=== PATIENT | female | born 1960 | race American Indian/Alaskan Native ===

== ENCOUNTER 2018-02-20 02:45 | Inpatient (IN) | payer MEDICAID ==
--- NOTE | 2018-02-20 03:30 | C.PDOC ---
History Of Present Illness 57 year old female presents to the ED for psychiatric evaluation. Patient reports suicidal ideation since last night. Patient has history of suicidal ideation one year ago. She reports she has been drinking alcohol and using heroin for the past few days. She denies homicidal ideation. Chief Complaint (Nursing): Psychiatric Evaluation History Per: Patient History/Exam Limitations: no limitations Onset/Duration Of Symptoms: Hrs Current Symptoms Are (Timing): Still Present Suicide/Self Injury Attempted (Context): None Modifying Factor(s): Alcohol, Narcotics (heroin ) Associated Symptoms: Suicidal Thoughts Involuntary Hold By: None Recent travel outside of the [place]: No Additional History Per: Patient Past Medical History Reviewed: Historical Data, Nursing Documentation, Vital Signs Vital Signs: Last Vital Signs Temp 98.4 F 02/20/18 06:30 Pulse 60 02/20/18 06:30 Resp 16 02/20/18 06:30 BP 96/67 L 02/20/18 06:30 Pulse Ox 99 02/20/18 06:37 - Medical History PMH: Asthma, Back Problems (Herniated Disc, Sciatica), Bipolar Disorder, HTN, Hypercholesterolemia, Schizophrenia, Chronic Pain (Back) Denies: Diabetes, Hepatitis, HIV, Seizures, Sexually Transmitted Disease Surgical History: No Surg Hx - [facility] Procedures CLOSED ENDOSCOPIC BIOPSY OF LARGE INTESTINE (08/12/13) ESOPHAGOGASTRODUODENOSCOPY [EGD] W/CLOSED BIOPSY (08/12/13) EXCISION OF STOMACH, ENDO, DIAGN (12/29/15) Family History: States: Unknown Family Hx - Social History Hx Tobacco Use: Yes Hx Alcohol Use: Yes Hx Substance Use: Yes - Immunization History Hx Tetanus Toxoid Vaccination: Yes Hx Influenza Vaccination: No Hx Pneumococcal Vaccination: No Review Of Systems Psych: Positive for: Suicidal ideation Physical Exam - Physical Exam Appears: Non-toxic, No Acute Distress Skin: Normal Color, Warm, Dry Head: Atraumatic, Normacephalic Eye(s): bilateral: Normal Inspection Oral Mucosa: Moist, Other (alcohol on breath ) Neck: Supple Chest: Symmetrical, No Deformity, No Tenderness Cardiovascular: Rhythm Regular, No Murmur Respiratory: Normal Breath Sounds, No Rales, No Rhonchi, No Wheezing Extremity: Normal ROM, Capillary Refill (less than 2 seconds ) Neurological/Psych: Oriented x3, Normal Speech, Normal Cognition ED Course And Treatment - Laboratory Results Result Diagrams: 02/20/18 03:51 02/20/18 03:36 O2 Sat by Pulse Oximetry: 99 (on RA) Pulse Ox Interpretation: Normal Progress Note: Bloodwork and UA ordered and reviewed. Disposition Discussed With : Dinah Barnes Doctor Will See Patient In The: Hospital Counseled Patient/Family Regarding: Diagnosis - Disposition Disposition: HOSPITALIZED Disposition Time: 06:37 Condition: STABLE Forms: [facility] ([place]) - POA Present On Arrival: None - Clinical Impression Clinical Impression: Schizophrenia, unspecified - Scribe Statement The provider has reviewed the documentation as recorded by the Scribe (Perla Mcdonnell) Provider Attestation: All medical record entries made by the Scribe were at my direction and personally dictated by me. I have reviewed the chart and agree that the record accurately reflects my personal performance of the history, physical exam, medical decision making, and the department course for this patient. I have also personally directed, reviewed, and agree with the discharge instructions and disposition.
[2018-02-20 03:46] LABS: HCG,QUALITATIVE URINE NEGATIVE (NEGATIVE)
[2018-02-20 03:49] LABS: SQUAMOUS EPITHIAL 2 /hpf (0-5); URINE BILIRUBIN NEGATIVE (NEGATIVE); URINE BLOOD NEGATIVE (NEGATIVE); URINE CLARITY Clear (Clear); URINE COLOR Yellow (YELLOW); URINE GLUCOSE (UA) NORMAL (Normal); URINE LEUKOCYTE ESTERASE NEG Leu/uL (Negative); URINE PROTEIN NEGATIVE (NEGATIVE); URINE UROBILINOGEN NORMAL mg/dL (0.2-1.0)
[2018-02-20 03:51] LABS: ALBUMIN 3.6 g/dL (3.5-5.0); ALT/SGPT 28 U/L (9-52); AST/SGOT 29 U/L (14-36); BLOOD UREA NITROGEN 16 mg/dL (7-17); CALCIUM 8.8 mg/dl (8.6-10.4); GFR AFRICAN-AMERICAN 56; GFR NON-AFRICAN AMERICAN 46
[2018-02-20 03:54] LABS: BASO # 0.1 K/uL (0.0-0.2); BASO % 1.4 % (0.0-2.0); EOS # 0.2 K/uL (0.0-0.7); EOS % 1.5 % (0.0-4.0); HEMOGLOBIN 11.6 g/dL (11.0-16.0); LYMPH # 3.2 K/uL (1.0-4.3); LYMPH % 30.2 % (20.0-40.0); MEAN CELL VOLUME 84.7 fL (81.0-99.0); MEAN CORPUSCULAR HEMOGLOBIN 27.8 pg (27.0-31.0); MEAN CORPUSCULAR HGB CONC 32.8 g/dL (33.0-37.0); MEAN PLATELET VOLUME 9.4 fL (7.2-11.7); MONO # 0.7 K/uL (0.0-0.8); MONO % 6.4 % (0.0-10.0); NEUT # 6.5 K/uL (1.8-7.0); NEUT % 60.5 % (50.0-75.0); NRBC % 0.1 % (0.0-2.0); RBC 4.16 Mil/uL (3.80-5.20); RED CELL DISTRIBUTION WIDTH 15.9 % (11.5-14.5); WHITE BLOOD COUNT 10.7 K/uL (4.8-10.8)
[2018-02-20 04:03] LABS: BARBITURATES, UR POSITIVE (NEGATIVE); BENZODIAZEPINES, UR NEGATIVE (NEGATIVE); OPIATES, UR POSITIVE (NEGATIVE); PHENCYCLIDINE, UR NEGATIVE (NEGATIVE)
[2018-02-20] MEDS ORDERED: Alum-Mag Hydrox-Simethicone Susp (30 mL) PO STA (06:31)
[2018-02-20] MEDS ORDERED: Alum-Mag Hydrox-Simethicone Susp (30 mL) ONE (06:40)
[2018-02-20] MEDS ORDERED: Pneumococcal 23-Valent Vaccine SC ONE (08:25)
--- NOTE | 2018-02-20 08:55 | PCM.BM ---
Treatment Plan Problems - Problems identified on initial assessmt Substance Abuse Date Initiated: 02/20/18 Time Initiated: 09:00 Assessment reference: NA Status: Active - Milieu Protocol Maintain good personal hygiene: daily Encourage regular showers, daily Remind patient to perform daily oral care, daily Assist patient to perform ADL's Maintain personal safety: daily Educate patient to report safety concerns to staff, daily Monitor environment for contraband/sharps Medication safety: Monitor for expected outcome, potential side effects: daily, Assess barriers to learning: daily, Assess readiness for medication education: daily
--- NOTE | 2018-02-20 10:23 | PCM.PSYCH ---
Initial Psychiatric Evaluation - Initial Psychiatric Evaluation Type of Admission: Voluntary Legal Status: Capacity Chief Complaint (in patient's own words): I was feeling depressed and suicidal.' History of Present Illness and Precipitating Events: Patient is a 57yo AAF came to the ED with complain of depressed mood and suicidal ideation with plan 'to walk in front of cars'. As per the patient she lost her job almost 6 months ago. 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 Pt has also had on-going conflicts with her live-in boyfriend, stating: "We have a lot of challenges about work, money, and where we live". As per the patient she become increasingly depressed since then. Since past 2 days she has been increasingly suicidal. Pt attempted to walk in front of on-coming traffic; However, the cars reportedly "stopped too fast". Pt has a hx of two prior suicide attempts by od on pills. Patient reported depressed mood, feelings of hopelessness and helplessness or sleep and poor appetite. She also reports of hearing voices, telling her, "I was a bad person" and "My life is no good"; Pt also has a prior hx of experiencing command "voices " instructing her to "hurt" herself. Pt states she had been linked with outpt services at [facility]; Last contact with same was in January 2018; Pt has been medication non-compliant for the past "few days". She also reports abusing heroin 5-10 bags, along with cocaine. Last abuse was day before yesterday. Patient reports of withdrawal symptoms including nausea, vomiting, diarrhea, abdominal cramps and joint pains. Past medical history: COPD, HTN Current Medications: Active Medications Generic Name Dose Route Start Last Admin Trade Name Freq PRN Reason Stop Dose Admin Clonidine HCl 0.1 mg 02/20/18 07:08 Catapres PO Q8 PRN COWS Score More or Equal to 5 Hydroxyzine HCl 25 mg 02/20/18 07:09 Atarax PO Q6H PRN Anxiety Ibuprofen 600 mg 02/20/18 07:09 Motrin Tab PO TID PRN Pain, moderate (4-7) Loperamide HCl 2 mg 02/20/18 07:08 Imodium PO Q8 PRN Diarrhea Ondansetron HCl 4 mg 02/20/18 07:08 Zofran Tab PO Q8 PRN Nausea/Vomiting Past Psychiatric History - Past Psychiatric History Previous Treatment History: Inpatient Pertinent Medical Hx (Current Medical&Sleep Prob, Allergies): Allergies Allergy/AdvReac Type Severity Reaction Status Date / Time No Known Allergies Allergy Verified 04/30/15 17:16 Alprazolam [Xanax] 2 mg PO BID 04/30/15 Oxycodone Hydrochloride [Oxycodone] 30 mg PO TID 04/30/15 Atorvastatin [Lipitor] 20 mg PO DAILY 12/29/15 Hydrochlorothiazide [HCTZ] 25 mg PO DAILY 12/29/15 cloNIDine [Catapres] 0.3 mg PO TID 12/29/15 Albuterol HFA [Ventolin HFA 90 mcg/actuation (8 g)] 2 puff IH [id number] PRN #1 inhaler 08/28/16 Azithromycin [Zithromax Tri-Moiz] 500 mg PO DAILY #3 tablet 08/28/16 Prednisone [Deltasone] 3 tab PO DAILY #12 tablet 08/28/16 Review of Systems - Review of Systems All systems: reviewed and no additional remarkable complaints except - Psychiatric Psychiatric: Anxiety, Auditory Hallucinations, Depression, Suicidal Ideation Mental Status Examination - Personal Presentation Personal Presentation: Looks stated age - Affect Affect: Constricted, Depressed - Motor Activity Motor Activity: Calm - Reliability in Providing Information Reliability in Providing Information: Poor, due to alteration in thoughts - Speech Speech: Disorganized - Mood Mood: Depressed, Anxious - Formal Thought Process Formal Thought Process: Hallucinations, Delusions - Hallucinations/Delusions Hallucinations: Auditory Delusions: Persecution - Obsessions/Compulsions Obsessions: No Compulsions: No - Cognitive Functions Orientation: Person, Place, Situation, Time Sensorium: Alert Attention/Concentration: Attentive Abstract Thinking: [place] Estimate of Intelligence: Below average Judgement: Imparied, as evidence by: Poor judgement, Imparied, as evidence by: Lack of insight into illness - Risk Risk: Suicidal, Withdrawal, Diminished functioning - Strength & Assets Inventory Strength & Assets Inventory: Family support DSM 5 DX - DSM 5 DSM 5 Diagnosis: Schizoaffective disorder depressed type Opioid use disorder severe Opioid withdrawal Cocaine use disorder severe - Recommended/Plan of Treatment Treatment Recommendations and Plan of Treatment: Schizoaffective disorder depressed type CBT Psychoeducation Supportive therapy, group therapy, individual therapy Paxil 10 mg by mouth twice a day Seroquel 100 mg PO QHS Opioid use disorder severe CBT Psychoeducation Supportive therapy, individual therapy Use [place] for abstinence Opioid withdrawal CBT Psychoeducation Supportive therapy, individual therapy Clonidine when necessary Methadone taper Cocaine use disorder severe CBT Psychoeducation Supportive therapy, individual therapy Use [place] for abstinence COPD Continue prescribed medications HTN Continue prescribed medications
[2018-02-20] MEDS ORDERED: Albuterol HFA 90 mcg/actuation (8 g) IH PRN (14:00)
[2018-02-20] MEDS ORDERED: Albuterol-Ipratrop 3 mg / 0.5 (3 ml) UD INH PRN (14:09)
--- NOTE | 2018-02-20 14:12 | CP.PCM.CON ---
History of Present Illness - History of Present Illness History of Present Illness: PGY 2 medicine consult note for Dr. Pandey: Patient was seen and examined today. 57 year old female with a past medical history of hypertension, hyperlipidemina and COPD. Patient states she is a patient of Dr. Pandey and consult was placed for COPD management. Patients states she has been taking a steroid pack outpatient fot the last week for COPD exacerbation. At the moment she feels slightly short of breath and is coughing. She denies chest pain or other symptoms. She reports taking Ventolin, Spirivia and Advair at home for COPD. Of note she is also on Clonidine three times daily for BP control. Review of Systems - Constitutional Constitutional: absent: Chills, Fever - EENT Eyes: absent: Blurred Vision, Change in Vision - Cardiovascular Cardiovascular: absent: Chest Pain, Chest Pain at Rest - Respiratory Respiratory: Cough, Dyspnea on Exertion. absent: Dyspnea, Wheezing, Chest Congestion - Gastrointestinal Gastrointestinal: absent: Abdominal Pain Past Patient History - Past Medical History & Family History Past Medical History?: Yes - Past Social History Smoking Status: Heavy Smoker > 10 Cigarettes Daily - CARDIAC Hx Cardiac Disorders: No Hx Hypertension: Yes - PULMONARY Hx Chronic Obstructive Pulmonary Disease (COPD): Yes Hx Tuberculosis: No - NEUROLOGICAL HX Cerebrovascular Accident: No Hx Seizures: No - RENAL Hx Chronic Kidney Disease: No - ENDOCRINE/METABOLIC Hx Endocrine Disorders: No - HEMATOLOGICAL/ONCOLOGICAL Hx Cancer: No Hx Human Immunodeficiency Virus (HIV): No - INTEGUMENTARY Hx Dermatological Problems: No - MUSCULOSKELETAL/RHEUMATOLOGICAL Hx Back Pain: Yes (chronic back pain) Hx Falls: Yes (fell last week) Hx Herniated Disk: Yes (lower back) Hx Unsteady Gait: Yes - GASTROINTESTINAL Hx Gastrointestinal Disorders: No - GENITOURINARY/GYNECOLOGICAL Hx Sexually Transmitted Disorders: No - PSYCHIATRIC Hx Depression: Yes - SURGICAL HISTORY Hx Breast Biopsy: Yes (left breast, benign) Other/Comment: Closed Endoscopic Biopsy of large intestine. - ANESTHESIA Hx Anesthesia: Yes Hx Anesthesia Reactions: No Hx Malignant Hyperthermia: No Meds Allergies/Adverse Reactions: Allergies Allergy/AdvReac Type Severity Reaction Status Date / Time No Known Allergies Allergy Verified 04/30/15 17:16 - Medications Medications: Current Medications Albuterol (Ventolin Hfa 90 Mcg/Actuation (8 G)) 2 puff IH RQ6 PRN PRN Reason: Cough Chlordiazepoxide (Librium) 25 mg PO Q6 PRN PRN Reason: Symptoms of alcohol withdrawl Clonidine HCl (Catapres) 0.1 mg PO Q8 PRN PRN Reason: COWS Score More or Equal to 5 Clonidine HCl (Catapres) 0.3 mg PO TID [facility] Hydrochlorothiazide (Hydrodiuril) 25 mg PO DAILY [facility] Hydroxyzine HCl (Atarax) 25 mg PO Q6H PRN PRN Reason: Anxiety Ibuprofen (Motrin Tab) 600 mg PO TID PRN PRN Reason: Pain, moderate (4-7) Loperamide HCl (Imodium) 2 mg PO Q8 PRN PRN Reason: Diarrhea Methadone HCl (Methadone) 15 mg PO DAILY [facility] PRN Reason: Taper Stop: 02/24/18 09:59 Ondansetron HCl (Zofran Tab) 4 mg PO Q8 PRN PRN Reason: Nausea/Vomiting Paroxetine HCl (Paxil) 20 mg PO DAILY [facility] Last Admin: 02/20/18 12:11 Dose: 20 mg Quetiapine Fumarate (Seroquel) 100 mg PO HS [facility] Rosuvastatin Calcium (Crestor) 10 mg PO HS [facility] Physical Exam - Constitutional Appears: Non-toxic, No Acute Distress - Head Exam Head Exam: ATRAUMATIC, NORMAL INSPECTION - Eye Exam Eye Exam: EOMI Pupil Exam: NORMAL ACCOMODATION - ENT Exam ENT Exam: Mucous Membranes Moist - Respiratory Exam Respiratory Exam: Decreased Breath Sounds, Wheezes, NORMAL BREATHING PATTERN. absent: Accessory Muscle Use, Respiratory Distress - Cardiovascular Exam Cardiovascular Exam: REGULAR RHYTHM, +S1, +S2 - GI/Abdominal Exam GI & Abdominal Exam: Normal Bowel Sounds, Soft. absent: Tenderness - Extremities Exam Extremities exam: Positive for: normal inspection Results - Vital Signs Recent Vital Signs: Last Vital Signs Temp 98.2 F 02/20/18 07:35 Pulse 54 L 02/20/18 07:35 Resp 19 02/20/18 07:35 BP 124/74 02/20/18 07:35 Pulse Ox 99 02/20/18 06:40 - Labs Result Diagrams: 02/20/18 03:51 02/20/18 03:36 Labs: Laboratory Results - last 24 hr 02/20/18 02/20/18 02/20/18 03:36 03:44 03:44 WBC RBC Hgb Hct MCV MCH MCHC RDW Plt Count MPV Neut % (Auto) Lymph % (Auto) [place] % (Auto) Eos % (Auto) Baso % (Auto) Neut # (Auto) Lymph # (Auto) [place] # (Auto) Eos # (Auto) Baso # (Auto) Sodium 138 Potassium 3.9 Chloride 103 Carbon Dioxide 26 Anion Gap 13 BUN 16 Creatinine 1.2 Est GFR ( Amer) 56 Est GFR (Non-Af Amer) 46 Random Glucose 103 Calcium 8.8 Total Bilirubin 0.7 AST 29 ALT 28 Alkaline Phosphatase 67 Total Protein 7.2 Albumin 3.6 Globulin 3.7 Albumin/Globulin Ratio 1.0 Urine Color Yellow Urine Clarity Clear Urine pH 7.0 Ur Specific [place] 1.010 Urine Protein Negative Urine Glucose (UA) Normal Urine Ketones Negative Urine Blood Negative Urine Nitrate Negative Urine Bilirubin Negative Urine Urobilinogen Normal Ur Leukocyte Esterase Neg Urine WBC (Auto) 1 Urine RBC (Auto) < 1 Ur Squamous Epith Cells 2 Urine HCG, Qual Negative Urine Opiates Screen Positive H Urine Methadone Screen Negative Ur Barbiturates Screen Positive H Ur Phencyclidine Scrn Negative Ur Amphetamines Screen Negative U Benzodiazepines Scrn Negative U Oth Cocaine Metabols Positive H U Cannabinoids Screen Negative Alcohol, Quantitative < 10 02/20/18 03:51 WBC 10.7 RBC 4.16 Hgb 11.6 Hct 35.2 MCV 84.7 MCH 27.8 MCHC 32.8 L RDW 15.9 H Plt Count 408 H D MPV 9.4 Neut % (Auto) 60.5 Lymph % (Auto) 30.2 [place] % (Auto) 6.4 Eos % (Auto) 1.5 Baso % (Auto) 1.4 Neut # (Auto) 6.5 Lymph # (Auto) 3.2 [place] # (Auto) 0.7 Eos # (Auto) 0.2 Baso # (Auto) 0.1 Sodium Potassium Chloride Carbon Dioxide Anion Gap BUN Creatinine Est GFR ( Amer) Est GFR (Non-Af Amer) Random Glucose Calcium Total Bilirubin AST ALT Alkaline Phosphatase Total Protein Albumin Globulin Albumin/Globulin Ratio Urine Color Urine Clarity Urine pH Ur Specific [place] Urine Protein Urine Glucose (UA) Urine Ketones Urine Blood Urine Nitrate Urine Bilirubin Urine Urobilinogen Ur Leukocyte Esterase Urine WBC (Auto) Urine RBC (Auto) Ur Squamous Epith Cells Urine HCG, Qual Urine Opiates Screen Urine Methadone Screen Ur Barbiturates Screen Ur Phencyclidine Scrn Ur Amphetamines Screen U Benzodiazepines Scrn U Oth Cocaine Metabols U Cannabinoids Screen Alcohol, Quantitative Assessment & Plan - Assessment and Plan (Free Text) Assessment: COPD exacerbation Duonebs RQ4 prn SOB Advair 250/50 RQ12 Spiriva 18 mcg INH HS daily f/u chest X ray afrebrile, no white count Hypertension Clonidine 0.3 mg PO TID HCTZ 25mg PO daily Hyperlipidemia Crestor 10mg PO HS All management per Dr. Dannie Nobles DO PGY2
[2018-02-20] MEDS: Simethicone 80 mg Chewtab PO PRN (18:00)
[2018-02-20] MEDS: Fluticasone-Salmeterol 250-50mcg Diskus INH SCH (20:31)
--- NOTE | 2018-02-21 10:58 | CP.PCM.PN ---
Subjective - Date & Time of Evaluation Date of Evaluation: 02/21/18 Time of Evaluation: 09:00 - Subjective Subjective: PGY 2 medicine progress note for Dr. Pandey: Patient was seen and examined today. Patient stating her breathing was a lot better than yesterday. No other complaints today. Medicine will sign off. Continue current medications. Objective - Vital Signs/Intake and Output Vital Signs (last 24 hours): Temp Pulse Resp BP Pulse Ox 97.6 F 51 L 19 152/91 H 99 02/21/18 06:31 02/21/18 06:31 02/21/18 06:31 02/21/18 06:31 02/20/18 06:40 - Medications Medications: Current Medications Albuterol/Ipratropium (Duoneb 3 Mg/0.5 Mg (3 Ml) Ud) 3 ml INH RQ4 PRN PRN Reason: Shortness of Breath Clonidine HCl (Catapres) 0.1 mg PO Q8 PRN PRN Reason: COWS Score More or Equal to 5 Hydrochlorothiazide (Hydrodiuril) 25 mg PO DAILY [facility] Last Admin: 02/21/18 09:10 Dose: 25 mg Hydroxyzine HCl (Atarax) 25 mg PO Q6H PRN PRN Reason: Anxiety Last Admin: 02/21/18 02:05 Dose: 25 mg Ibuprofen (Motrin Tab) 600 mg PO TID PRN PRN Reason: Pain, moderate (4-7) Loperamide HCl (Imodium) 2 mg PO Q8 PRN PRN Reason: Diarrhea Methadone HCl (Methadone) 15 mg PO DAILY [facility] PRN Reason: Taper Stop: 02/24/18 09:59 Last Admin: 02/21/18 09:09 Dose: 15 mg Ondansetron HCl (Zofran Tab) 4 mg PO Q8 PRN PRN Reason: Nausea/Vomiting Paroxetine HCl (Paxil) 20 mg PO DAILY [facility] Last Admin: 02/21/18 09:09 Dose: 20 mg Prednisone (Prednisone Tab) 10 mg PO BID [facility] Stop: 02/25/18 10:01 Last Admin: 02/21/18 10:42 Dose: 10 mg Quetiapine Fumarate (Seroquel) 100 mg PO [facility] Last Admin: 02/20/18 21:34 Dose: 100 mg Rosuvastatin Calcium (Crestor) 10 mg PO [facility] Last Admin: 02/20/18 21:34 Dose: 10 mg Fluticasone/Salmeterol (Advair Diskus 250/50) 1 puff INH RQ12 [facility] Last Admin: 02/20/18 20:31 Dose: Not Given Simethicone (Mylicon Chew Tab) 80 mg PO Q6H PRN PRN Reason: GI distress Last Admin: 02/20/18 18:00 Dose: 80 mg Tiotropium [place] (Spiriva) 18 mcg INH RQ24 [facility]ACHEL - Labs Labs: 02/20/18 03:51 02/20/18 03:36 - Constitutional Appears: Non-toxic, No Acute Distress - Head Exam Head Exam: NORMAL INSPECTION - ENT Exam ENT Exam: Mucous Membranes Moist - Respiratory Exam Respiratory Exam: Decreased Breath Sounds, NORMAL BREATHING PATTERN. absent: Rales, Wheezes, Respiratory Distress - Cardiovascular Exam Cardiovascular Exam: REGULAR RHYTHM, +S1, +S2 - GI/Abdominal Exam GI & Abdominal Exam: Soft, Normal Bowel Sounds. absent: Distended, Firm, Guarding, Tenderness - Extremities Exam Extremities Exam: Normal Inspection Assessment and Plan - Assessment and Plan (Free Text) Assessment: COPD Resolving Duonebs RQ4 prn SOB Advair 250/50 RQ12 Spiriva 18 mcg INH HS daily Prednisone 10mg PO BID x 5 days total (started 02/21) f/u chest X ray afrebrile, no white count Hypertension Clonidine 0.3 mg PO TID HCTZ 25mg PO daily Hyperlipidemia Crestor 10mg PO HS Medicine team will sign off of the patient. Please continue her medications. All management per Dr. Dannie Nobles DO PGY2
[2018-02-21] MEDS: Fluticasone-Salmeterol 250-50mcg Diskus INH SCH ×2 (11:56→20:36)
[2018-02-21] MEDS: Tiotropium 18 mcg Cap For Inhalation INH SCH (11:58)
[2018-02-22] MEDS: Tiotropium 18 mcg Cap For Inhalation INH SCH (09:06)
[2018-02-22] MEDS: Fluticasone-Salmeterol 250-50mcg Diskus INH SCH ×2 (09:59→20:10)
--- NOTE | 2018-02-22 14:56 | PCM.PYCHPN ---
Psychiatric Progress Note - Psychiatric Progress Note Patient seen today, length of contact: 15 min Patient Chief Complaint: I was feeling depressed Problems Identified/Issues Discussed: Patient seen and evaluated, chart reviewed and discussed with the nurse. Today patient appeared more organized and less internally preoccupied. Patient reports some improvement in the delusions and paranoia. She reports depressed mood and feelings of hopelessness and helplessness. She reports withdrawal symptoms including cramps, sweating, headaches anxiety. But remained isolated and withdrawn, denies any suicidal ideation or homicidal ideation. She is taking medication and denies any side effects. Symptoms are improving but she needs more time for stabilization. Supportive therapy was given. Medication Change: Yes Medical Record Reviewed: Yes Mental Status Examination - Cognitive Function Orientation: Person, Place, Situation, Time Memory: Intact Attention: WNL Concentration: Poor Association: WNL Fund of Knowledge: Poor - Mood Mood: Depressed, Anxious - Affect Affect: Constricted, Depressed - Speech Speech: Soft - Formal Thought Process Formal Thought Process: Hallucinations, Delusions - Suicidal Ideation Suicidal Ideation: No - Homicidal Ideation Homicidal Ideation: No Goal/Treatment Plan - Goal/Treatment Plan Need for Continued Stay: Severe depression anxiety, Severe functional impairment Progress Toward Problem(s) and Goals/Treatment Plan: Schizoaffective disorder depressed type CBT Psychoeducation Supportive therapy, group therapy, individual therapy Paxil 10 mg by mouth twice a day Seroquel 100 mg PO QHS Opioid use disorder severe CBT Psychoeducation Supportive therapy, individual therapy Use [place] for abstinence Opioid withdrawal CBT Psychoeducation Supportive therapy, individual therapy Clonidine when necessary Methadone taper Cocaine use disorder severe CBT Psychoeducation Supportive therapy, individual therapy Use [place] for abstinence COPD Continue prescribed medications HTN Continue prescribed medications - Smoking Cessation Smoking Cessation Initiated: No
--- NOTE | 2018-02-22 14:57 | PCM.PYCHPN ---
Psychiatric Progress Note - Psychiatric Progress Note Patient seen today, length of contact: 15 min Patient Chief Complaint: I m feeling depressed .' Problems Identified/Issues Discussed: Patient seen and evaluated, chart reviewed and discussed with the nurse. Today patient appeared more organized and less internally preoccupied. Patient reports some improvement in the delusions and paranoia. She reports depressed mood and reports withdrawal symptoms including cramps, sweating, headaches anxiety. But remained isolated and withdrawn, denies any suicidal ideation or homicidal ideation. She is taking medication and denies any side effects. Symptoms are improving but she needs more time for stabilization. Supportive therapy was given. Medication Change: Yes Medical Record Reviewed: Yes Mental Status Examination - Cognitive Function Orientation: Person, Place, Situation, Time Memory: Intact Attention: WNL Concentration: Poor Association: WNL Fund of Knowledge: Poor - Mood Mood: Depressed, Anxious - Affect Affect: Constricted, Depressed - Speech Speech: Soft - Formal Thought Process Formal Thought Process: Hallucinations, Delusions - Suicidal Ideation Suicidal Ideation: No - Homicidal Ideation Homicidal Ideation: No Goal/Treatment Plan - Goal/Treatment Plan Need for Continued Stay: Severe depression anxiety, Severe functional impairment Progress Toward Problem(s) and Goals/Treatment Plan: Schizoaffective disorder depressed type CBT Psychoeducation Supportive therapy, group therapy, individual therapy Paxil 20 mg by mouth twice a day Seroquel 100 mg PO QHS Opioid use disorder severe CBT Psychoeducation Supportive therapy, individual therapy Use [place] for abstinence Opioid withdrawal CBT Psychoeducation Supportive therapy, individual therapy Clonidine when necessary Methadone taper Cocaine use disorder severe CBT Psychoeducation Supportive therapy, individual therapy Use [place] for abstinence COPD Continue prescribed medications Medicine on board HTN Continue prescribed medications - Smoking Cessation Smoking Cessation Initiated: No
--- NOTE | 2018-02-22 15:49 | RAD ---
HISTORY: copd exacerbation COMPARISON: 04/12/2013 TECHNIQUE: Chest PA and lateral FINDINGS: LUNGS: No active pulmonary disease. PLEURA: No significant pleural effusion identified. No pneumothorax apparent. CARDIOVASCULAR: Normal. OSSEOUS STRUCTURES: No significant abnormalities. VISUALIZED UPPER ABDOMEN: Normal. OTHER FINDINGS: None. IMPRESSION: No active disease.
[2018-02-23] MEDS: Tiotropium 18 mcg Cap For Inhalation INH SCH (09:31)
[2018-02-23] MEDS: Fluticasone-Salmeterol 250-50mcg Diskus INH SCH ×2 (09:32→20:28)
--- NOTE | 2018-02-23 16:53 | PCM.PYCHPN ---
Psychiatric Progress Note - Psychiatric Progress Note Patient seen today, length of contact: 15 min Patient Chief Complaint: I m feeling depressed .' Problems Identified/Issues Discussed: Patient seen and evaluated, chart reviewed and discussed with the nurse. Today patient appeared more organized and less internally preoccupied. Patient reports some improvement in the delusions and paranoia. She reports depressed mood and reports withdrawal symptoms including cramps, sweating, headaches anxiety. But remained isolated and withdrawn, denies any suicidal ideation or homicidal ideation. She is taking medication and denies any side effects. Symptoms are improving but she needs more time for stabilization. Supportive therapy was given. Medication Change: Yes Medical Record Reviewed: Yes Mental Status Examination - Cognitive Function Orientation: Person, Place, Situation, Time Memory: Intact Attention: WNL Concentration: Poor Association: WNL Fund of Knowledge: Poor - Mood Mood: Depressed, Anxious - Affect Affect: Constricted, Depressed - Speech Speech: Soft - Formal Thought Process Formal Thought Process: Hallucinations, Delusions - Suicidal Ideation Suicidal Ideation: No - Homicidal Ideation Homicidal Ideation: No Goal/Treatment Plan - Goal/Treatment Plan Need for Continued Stay: Severe depression anxiety, Severe functional impairment Progress Toward Problem(s) and Goals/Treatment Plan: Schizoaffective disorder depressed type CBT Psychoeducation Supportive therapy, group therapy, individual therapy Paxil 20 mg by mouth twice a day Seroquel 100 mg PO QHS Opioid use disorder severe CBT Psychoeducation Supportive therapy, individual therapy Use [place] for abstinence Opioid withdrawal CBT Psychoeducation Supportive therapy, individual therapy Clonidine when necessary Methadone taper Cocaine use disorder severe CBT Psychoeducation Supportive therapy, individual therapy Use [place] for abstinence COPD Continue prescribed medications Medicine on board HTN Continue prescribed medications
[2018-02-24] MEDS: Fluticasone-Salmeterol 250-50mcg Diskus INH SCH ×2 (09:38→20:34)
--- NOTE | 2018-02-24 11:12 | PCM.PYCHPN ---
Psychiatric Progress Note - Psychiatric Progress Note Patient seen today, length of contact: 15 min Patient Chief Complaint: I m feeling depressed .' Problems Identified/Issues Discussed: Patient seen and evaluated, chart reviewed and discussed with the nurse. Today patient appeared more organized and less internally preoccupied. Patient reports some improvement in the delusions and paranoia. She reports depressed mood and reports withdrawal symptoms including cramps, sweating, headaches anxiety. But remained isolated and withdrawn, denies any suicidal ideation or homicidal ideation. She is taking medication and denies any side effects. Symptoms are improving but she needs more time for stabilization. Supportive therapy was given. Medication Change: Yes Medical Record Reviewed: Yes Mental Status Examination - Cognitive Function Orientation: Person, Place, Situation, Time Memory: Intact Attention: WNL Concentration: Poor Association: WNL Fund of Knowledge: Poor - Mood Mood: Depressed, Anxious - Affect Affect: Constricted, Depressed - Speech Speech: Soft - Formal Thought Process Formal Thought Process: Hallucinations, Delusions - Suicidal Ideation Suicidal Ideation: No - Homicidal Ideation Homicidal Ideation: No Goal/Treatment Plan - Goal/Treatment Plan Need for Continued Stay: Severe depression anxiety, Severe functional impairment Progress Toward Problem(s) and Goals/Treatment Plan: Schizoaffective disorder depressed type CBT Psychoeducation Supportive therapy, group therapy, individual therapy Paxil 20 mg by mouth twice a day Seroquel 100 mg PO QHS Opioid use disorder severe CBT Psychoeducation Supportive therapy, individual therapy Use [place] for abstinence Opioid withdrawal CBT Psychoeducation Supportive therapy, individual therapy Clonidine when necessary Methadone taper Cocaine use disorder severe CBT Psychoeducation Supportive therapy, individual therapy Use [place] for abstinence COPD Continue prescribed medications Medicine on board HTN Continue prescribed medications
[2018-02-25] MEDS: Tiotropium 18 mcg Cap For Inhalation INH SCH ×2 (08:00→09:57)
--- NOTE | 2018-02-25 08:02 | PCM.PYCHPN ---
Psychiatric Progress Note - Psychiatric Progress Note Patient seen today, length of contact: 15 min Patient Chief Complaint: I m feeling depressed .' Problems Identified/Issues Discussed: Patient seen and evaluated, chart reviewed and discussed with the nurse. Today patient appeared more organized and less internally preoccupied. Patient reports some improvement in the delusions and paranoia. She reports depressed mood and reports withdrawal symptoms including cramps, sweating, headaches anxiety. But remained isolated and withdrawn, denies any suicidal ideation or homicidal ideation. She is taking medication and denies any side effects. Symptoms are improving but she needs more time for stabilization. Supportive therapy was given. Medication Change: Yes Medical Record Reviewed: Yes Mental Status Examination - Cognitive Function Orientation: Person, Place, Situation, Time Memory: Intact Attention: WNL Concentration: Poor Association: WNL Fund of Knowledge: Poor - Mood Mood: Depressed, Anxious - Affect Affect: Constricted, Depressed - Speech Speech: Soft - Formal Thought Process Formal Thought Process: Hallucinations, Delusions - Suicidal Ideation Suicidal Ideation: No - Homicidal Ideation Homicidal Ideation: No Goal/Treatment Plan - Goal/Treatment Plan Need for Continued Stay: Severe depression anxiety, Severe functional impairment Progress Toward Problem(s) and Goals/Treatment Plan: Schizoaffective disorder depressed type CBT Psychoeducation Supportive therapy, group therapy, individual therapy Paxil 20 mg by mouth twice a day Seroquel 100 mg PO QHS Opioid use disorder severe CBT Psychoeducation Supportive therapy, individual therapy Use [place] for abstinence Opioid withdrawal CBT Psychoeducation Supportive therapy, individual therapy Clonidine when necessary Methadone taper Cocaine use disorder severe CBT Psychoeducation Supportive therapy, individual therapy Use [place] for abstinence COPD Continue prescribed medications Medicine on board HTN Continue prescribed medications
[2018-02-25] MEDS: Fluticasone-Salmeterol 250-50mcg Diskus INH SCH ×2 (08:33→20:21)
[2018-02-26] MEDS: Tiotropium 18 mcg Cap For Inhalation INH SCH (08:21)
[2018-02-26] MEDS: Fluticasone-Salmeterol 250-50mcg Diskus INH SCH ×3 (08:21→21:30)
[2018-02-26] MEDS: Multiple Vitamins Tab PO SCH (17:36)
[2018-02-27] MEDS: Fluticasone-Salmeterol 250-50mcg Diskus INH SCH ×2 (08:34→20:26)
[2018-02-27] MEDS: Tiotropium 18 mcg Cap For Inhalation INH SCH (08:34)
[2018-02-27] MEDS: Multiple Vitamins Tab PO SCH (09:11)
--- NOTE | 2018-02-27 10:14 | PCM.PYCHPN ---
Psychiatric Progress Note - Psychiatric Progress Note Patient seen today, length of contact: 15 min Patient Chief Complaint: I m feeling depressed .' Problems Identified/Issues Discussed: Patient seen and evaluated, chart reviewed and discussed with the nurse. Today patient appeared more organized and less internally preoccupied. Patient reports some improvement in the delusions and paranoia. She reports depressed mood and reports withdrawal symptoms including cramps, sweating, headaches anxiety. But remained isolated and withdrawn, denies any suicidal ideation or homicidal ideation. She is taking medication and denies any side effects. Symptoms are improving but she needs more time for stabilization. Supportive therapy was given. Medication Change: Yes Medical Record Reviewed: Yes Mental Status Examination - Cognitive Function Orientation: Person, Place, Situation, Time Memory: Intact Attention: WNL Concentration: Poor Association: WNL Fund of Knowledge: Poor - Mood Mood: Depressed, Anxious - Affect Affect: Constricted, Depressed - Speech Speech: Soft - Formal Thought Process Formal Thought Process: Hallucinations, Delusions - Suicidal Ideation Suicidal Ideation: No - Homicidal Ideation Homicidal Ideation: No Goal/Treatment Plan - Goal/Treatment Plan Need for Continued Stay: Severe depression anxiety, Severe functional impairment Progress Toward Problem(s) and Goals/Treatment Plan: Schizoaffective disorder depressed type CBT Psychoeducation Supportive therapy, group therapy, individual therapy Paxil 20 mg by mouth twice a day Seroquel 100 mg PO QHS Opioid use disorder severe CBT Psychoeducation Supportive therapy, individual therapy Use [place] for abstinence Opioid withdrawal CBT Psychoeducation Supportive therapy, individual therapy Clonidine when necessary Methadone taper Cocaine use disorder severe CBT Psychoeducation Supportive therapy, individual therapy Use [place] for abstinence COPD Continue prescribed medications Medicine on board HTN Continue prescribed medications
[2018-02-28 06:26] VITALS: RESP 18; O2SAT 98
[2018-02-28] MEDS: Tiotropium 18 mcg Cap For Inhalation INH SCH (09:07)
[2018-02-28] MEDS: Fluticasone-Salmeterol 250-50mcg Diskus INH SCH ×2 (09:49→20:00)
[2018-02-28] MEDS: Multiple Vitamins Tab PO SCH (09:49)
[2018-03-01 06:26] VITALS: BP 132/76; PULSE 62; TEMP 98.1
[2018-03-01] MEDS: Simethicone 80 mg Chewtab PO PRN (10:19)
[2018-03-01] MEDS: Multiple Vitamins Tab PO SCH (10:19)
[2018-03-01] MEDS: Fluticasone-Salmeterol 250-50mcg Diskus INH SCH (10:21)
--- NOTE | 2018-03-01 10:35 | PCM.PYCHDC ---
Mental Status Examination - Mental Status Examination Orientation: Person, Place, Situation, Time Memory: Intact Mood: Neutral Affect: Constricted Speech: Soft Attention: WNL Concentration: WNL Association: WNL Fund of Knowledge: WNL Formal Thought Process: No Impairment Description of patient's judgement and insight: good, fair Psychotic Thoughts and Behaviors: denies any AVH Suicidal Ideation: No Current Homicidal Ideation?: No Discharge Summary - Discharge Note Reason for Hospitalization: Patient is a 57yo AAF came to the ED with complain of depressed mood and suicidal ideation with plan 'to walk in front of cars'. As per the patient she lost her job almost 6 months ago. 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 Pt has also had on-going conflicts with her live-in boyfriend, stating: "We have a lot of challenges about work, money, and where we live". As per the patient she become increasingly depressed since then. Since past 2 days she has been increasingly suicidal. Pt attempted to walk in front of on-coming traffic; However, the cars reportedly "stopped too fast". Pt has a hx of two prior suicide attempts by od on pills. Patient reported depressed mood, feelings of hopelessness and helplessness or sleep and poor appetite. She also reports of hearing voices, telling her, "I was a bad person" and "My life is no good"; Pt also has a prior hx of experiencing command "voices " instructing her to "hurt" herself. Pt states she had been linked with outpt services at [facility] [place]; Last contact with same was in January 2018; Pt has been medication non-compliant for the past "few days". She also reports abusing heroin 5-10 bags, along with cocaine. Last abuse was day before yesterday. Patient reports of withdrawal symptoms including nausea, vomiting, diarrhea, abdominal cramps and joint pains. Consultations:: List each consultation separately and include: 1. Reason for request. 2. Findings. 3. Follow-up Summary of Hospital Course include:: 1. Description of specific treatment plan utilized for patients during their course of treatmen. 2. Summarize the time- course for resolution of acute symptoms and/or regressed behaviors. 3. Describe issues identified and worked on during hospitalization. 4. Describe medication utilized. 5. Describe medical problems identified and treated. 6. Reassessment of suicide risk Summary of Hospital Course: Patient is a 57yo AAF came to the ED with complain of depressed mood and suicidal ideation with plan 'to walk in front of cars'. As per the patient she lost her job almost 6 months ago. 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 Pt has also had on-going conflicts with her live-in boyfriend, stating: "We have a lot of challenges about work, money, and where we live". As per the patient she become increasingly depressed since then. Since past 2 days she has been increasingly suicidal. Pt attempted to walk in front of on-coming traffic; However, the cars reportedly "stopped too fast". Pt has a hx of two prior suicide attempts by od on pills. Patient reported depressed mood, feelings of hopelessness and helplessness or sleep and poor appetite. She also reports of hearing voices, telling her, "I was a bad person" and "My life is no good"; Pt also has a prior hx of experiencing command "voices " instructing her to "hurt" herself. Pt states she had been linked with outpt services at [facility] [place]; Last contact with same was in January 2018; Pt has been medication non-compliant for the past "few days". She also reports abusing heroin 5-10 bags, along with cocaine. Last abuse was day before yesterday. Patient reports of withdrawal symptoms including nausea, vomiting, diarrhea, abdominal cramps and joint pains. Past medical history: COPD, HTN - Final Diagnosis (DSM 5) Condition upon Discharge: STABLE DSM 5: Schizoaffective disorder depressed type Opioid use disorder severe Opioid withdrawal Cocaine use disorder severe Disposition: HOME/ ROUTINE Follow-up Treatment Plan: Schizoaffective disorder depressed type CBT Psychoeducation Supportive therapy, group therapy, individual therapy Paxil 20 mg by mouth twice a day Seroquel 100 mg PO QHS Opioid use disorder severe CBT Psychoeducation Supportive therapy, individual therapy Use [place] for abstinence Opioid withdrawal CBT Psychoeducation Supportive therapy, individual therapy Clonidine when necessary Methadone taper Cocaine use disorder severe CBT Psychoeducation Supportive therapy, individual therapy Use [place] for abstinence COPD Continue prescribed medications Medicine on board HTN Continue prescribed medications Prescriptions/Medication Reconciliation: PARoxetine [Paxil] 20 mg PO DAILY #30 tab QUEtiapine [SEROquel] 200 mg PO HS #30 tab traZODone [Desyrel] 50 mg PO HS PRN #30 tab PRN Reason: Insomnia - Smoking Cessation Smoking Cessation Medication prescribed: No - Antipsychotic Medications Pt discharged on 2 or more routine antipsychotic medications: No
[2018-03-01] MEDS: Tiotropium 18 mcg Cap For Inhalation INH SCH (11:37)
== END 2018-03-01 11:52 | disposition home or self-care (01) | DRG 430 ==
LOC: C.ER 02:45 → SUPCPDRO 02:45 → C.5E 06:38
PROVIDERS: ADMIT Psychiatry & Neurology Psychiatry; ATTEND Psychiatry & Neurology Psychiatry
PROC: GZ3ZZZZ Medication Management (ICD-10-PCS; principal; 2018-02-20)
PROC: HZ83ZZZ Medication Management for Substance Abuse Treatment, Antabuse (ICD-10-PCS; 2018-02-20)
PROC: GZHZZZZ Group Psychotherapy (ICD-10-PCS; 2018-02-20)
PROC: GZ56ZZZ Individual Psychotherapy, Supportive (ICD-10-PCS; 2018-02-20)
PROC: HZ2ZZZZ Detoxification Services for Substance Abuse Treatment (ICD-10-PCS; 2018-02-20)
PROC: HZ56ZZZ Individual Psychotherapy for Substance Abuse Treatment, Psychoeducation (ICD-10-PCS; 2018-02-20)
PROC: HZ59ZZZ Individual Psychotherapy for Substance Abuse Treatment, Supportive (ICD-10-PCS; 2018-02-20)
DX: F25.1 Schizoaffective disorder, depressive type (principal); F11.23 Opioid dependence with withdrawal; F14.20 Cocaine dependence, uncomplicated; J44.1 Chronic obstructive pulmonary disease with (acute) exacerbation; R45.851 Suicidal ideations; F31.9 Bipolar disorder, unspecified; F41.9 Anxiety disorder, unspecified; F17.210 Nicotine dependence, cigarettes, uncomplicated; Z91.14 Patient's other noncompliance with medication regimen; I10 Essential (primary) hypertension; E78.00 Pure hypercholesterolemia, unspecified; E78.5 Hyperlipidemia, unspecified